=== PATIENT | female | born 1965 | race Caucasian/White ===

== ENCOUNTER 2017-09-20 06:30 | Day surgery (SDC) | payer MEDICAID ==
[2017-09-20] MEDS ORDERED: Lactated Ringers 1,000 ML IV SCH (07:00)
[2017-09-20] MEDS ORDERED: Propofol 200 MG/20 ML SDV ONE (07:41)
[2017-09-20] MEDS ORDERED: Midazolam 1 MG/ML 2 ML SDV ONE (07:41)
[2017-09-20] MEDS ORDERED: fentaNYL 100 MCG/2 ML SDV ONE (07:41)
[2017-09-20 08:57] VITALS: BP 132/72
--- NOTE | 2017-09-20 10:34 | OR ---
DATE OF PROCEDURE: 09/20/2017 PROCEDURES: Colonoscopy. FINDINGS: 1. Sigmoid polyps, approximately 5 mm, completely removed using cold biopsy forceps. 2. Rectal polyps, approximately 5 mm, completely removed using cold biopsy forceps. COMPLICATIONS: None. ORE DRYER: None. PREOPERATIVE DIAGNOSIS: Screening colonoscopy. POSTOPERATIVE DIAGNOSIS: Screening colonoscopy. RISKS: Risks, benefits, alternatives, and limitations including, but not limited to infection, bleeding, and perforation were explained to the patient, and they wish to proceed. PROCEDURE IN DETAIL: The patient was placed in left lateral decubitus position. Digital rectal exam was performed without abnormality. Scope was introduced and advanced atraumatically to the ileocecal valve. A photo was taken. The scope was brought back through the ascending, transverse, descending colon, and retroflexed. The polyps were most consistent with small hyperplastic polyps/benign lesions, nonetheless, they were removed. The patient tolerated the procedure well. Demetrio Alexander MD /[id number]
--- NOTE | 2017-09-21 13:14 | PN ---
DATE OF SERVICE: 09/21/2017 The patient is noted to be satisfactory for the procedure. Demetrio Alexander MD /[id number]
== END 2017-09-20 09:17 | disposition home or self-care (01) ==
LOC: JP.SDS 06:30
PROVIDERS: ATTEND Surgery
DX: Z12.11 Encounter for screening for malignant neoplasm of colon (principal); K63.5 Polyp of colon; K62.1 Rectal polyp; E03.9 Hypothyroidism, unspecified; E10.9 Type 1 diabetes mellitus without complications; Z88.0 Allergy status to penicillin; Z88.2 Allergy status to sulfonamides; Z91.041 Radiographic dye allergy status; Z88.8 Allergy status to other drugs, medicaments and biological substances; Z79.4 Long term (current) use of insulin
CPT/HCPCS: 45380; J2250; J2704; J3010; J7120; 88305